=== PATIENT | female | born 2000 | race Caucasian/White ===

== ENCOUNTER 2023-04-13 13:22 | Outpatient (CLI) | payer OTHER, SELFPAY ==
--- NOTE | 2023-04-13 14:30 | NEURO_ITS ---
Impression: # Complains of pain in hands. # Evolving right Carpal Tunnel Syndrome. # No ulnar neuropathy. # Normal needle/EMG exam. Nerve Conduction Studies Anti Sensory Summary Table Stim Site NR Peak (ms) P-T Amp (?V) Site1 Site2 Delta-P (ms) Dist (cm) Mitch (m/s) Left Median Anti Sensory (2-3nd Digit) Wrist 2.8 65.4 Wrist 2-3nd Digit 2.8 14.0 50 Wrist 2.6 77.1 Wrist 2-3nd Digit 2.8 14.0 50 Right Median Anti Sensory (2-3nd Digit) Wrist 3.3 74.0 Wrist 2-3nd Digit 3.3 14.0 42 Wrist 3.7 48.0 Wrist 2-3nd Digit 3.3 14.0 42 Left Radial Anti Sensory (Base 1st Digit) Wrist 1.8 27.8 Wrist Base 1st Digit 1.8 0.0 Right Radial Anti Sensory (Base 1st Digit) Wrist 2.0 11.2 Wrist Base 1st Digit 2.0 0.0 Left Ulnar Anti Sensory (5th Digit) Wrist 2.3 38.1 Wrist 5th Digit 2.3 14.0 61 Right Ulnar Anti Sensory (5th Digit) Wrist 2.3 25.3 Wrist 5th Digit 2.3 14.0 61 Motor Summary Table Stim Site NR Onset (ms) O-P Amp (mV) Site1 Site2 Delta-0 (ms) Dist (cm) Mitch (m/s) Left Median Motor (Abd Poll Brev) Wrist 2.9 6.9 Elbow Wrist 4.5 29.0 64 Elbow 7.4 4.5 Right Median Motor (Abd Poll Brev) Wrist 3.3 7.0 Elbow Wrist 4.9 30.0 61 Elbow 8.2 5.1 Left Ulnar Motor (Abd Dig Minimi) Wrist 2.0 7.6 A Elbow Wrist 4.9 30.0 61 A Elbow 6.9 6.6 Right Ulnar Motor (Abd Dig Minimi) Wrist 2.0 7.6 A Elbow Wrist 5.2 32.0 62 A Elbow 7.2 5.6 F Wave Studies NR F-Lat (ms) L-R F-Lat (ms) Left Median (Mrkrs) (Abd Poll Brev) 25.62 2.18 Right Median (Mrkrs) (Abd Poll Brev) 27.80 2.18 Left Ulnar (Mrkrs) (Abd Dig Min) 25.26 0.56 Right Ulnar (Mrkrs) (Abd Dig Min) 25.81 0.56 EMG Side Muscle Nerve Root Ins Act Fibs Amp Dur Recrt Comment Right 1stDorInt Ulnar C8-T1 Nml Nml Nml Nml Nml Right Ext Indicis Radial (Post Int) C7-8 Nml Nml Nml Nml Nml Right Ext Digitorum Radial (Post Int) C7-8 Nml Nml Nml Nml Nml Right BrachioRad Radial C5-6 Nml Nml Nml Nml Nml Right PronatorTeres Median C6-7 Nml Nml Nml Nml Nml Right Abd Poll Brev Median C8-T1 Nml Nml Nml Nml Nml Right ABD Dig Min Ulnar C8-T1 Nml Nml Nml Nml Nml Left 1stDorInt Ulnar C8-T1 Nml Nml Nml Nml Nml Left Ext Indicis Radial (Post Int) C7-8 Nml Nml Nml Nml Nml Left Ext Digitorum Radial (Post Int) C7-8 Nml Nml Nml Nml Nml Left BrachioRad Radial C5-6 Nml Nml Nml Nml Nml Left PronatorTeres Median C6-7 Nml Nml Nml Nml Nml Left Abd Poll Brev Median C8-T1 Nml Nml Nml Nml Nml Left ABD Dig Min Ulnar C8-T1 Nml Nml Nml Nml Nml MTDD
== END 2023-04-13 13:23 | disposition home or self-care (01) ==
LOC: ANHNEURO 13:23
PROVIDERS: PCP Family Medicine; Visit Provider Plastic Surgery
DX: G56.03 Carpal tunnel syndrome, bilateral upper limbs (principal)
CPT/HCPCS: 95886; 95911

== ENCOUNTER 2023-06-03 00:45 | Day surgery (SDC) | payer OTHER, SELFPAY ==
[2023-05-25 12:18] VITALS: BMI 36.1
--- NOTE | 2023-05-25 12:22 | PC.NURSE ---
Report to the Outpatient Waiting Room, entrance under the green pavilion located off [facility], at time 0600 on date 06/03/23. Planned Procedure Time: 0730. Time changes happen often and if your time is changed the preop area will call you the afternoon before. - You and your visitor will be asked to self-screen and do not enter if you have any COVID symptoms. - A mask is optional within the hospital at this time. - No food OR DRINK from midnight until time of surgery Take the following medications with a SIP of water the morning of surgery: XANAX IF NEEDED, BUSPIRONE, CONTROL, SERTRALINE DO NOT STOP ANY OF YOUR OTHER PRESCRIPTION MEDICATIONS PRIOR TO SURGERY ?EXCEPT THE FOLLOWING Medications to discontinue per physician: N/A Date to take last dose: N/A Please no make-up, nail georgian, hairspray, perfume, deodorant, or body powder the day of surgery. No jewelry (including any body piercings) or valuables the day of surgery, leave them at home. Please take a shower or bath the night before, or the morning of, surgery with an antibacterial soap. Wear comfortable, loose fitting clothing. - Jewelry must be removed prior to entering the operating room. Rings and piercings that are not removed may be cut off. - The hospital will not accept responsibility for valuables. - Please leave all valuables, including medications, at home the day of surgery. If you are going home after surgery, a licensed vacuum truck driver must drive you home. - NO public transportation without another adult if you receive anesthesia. - We recommend that an adult stay with you for 24 hours following discharge. - We also recommend that you do not drive, make important decision, drink alcoholic beverages, or take any drugs that were not prescribed by your health care provider for at least 24 hours after your discharge time. Follow any additional instructions given to you from your surgeon. If you or anyone in your household have experienced Covid symptoms in the past week, please notify your surgeon or the nurse liaison at the phone number below for possible testing. Telephone instructions given to PT - RADHA and asked if any additional questions and then verbalized understanding. Patient advised to call surgeon office or pre surgery nurse liaison [phone] if any additional questions.
--- NOTE | 2023-06-03 06:53 | P.PNAN_ITS ---
Anes - Initial Pre Proc Eval Procedure: Operation Date: 06/03/23 07:30 Proposed Procedures p Right Endoscopic Carpal Tunnel Release, Possible Open - Graham Delacruz MD Date/Time: 06/03/23 06:53 Surgeon: Graham Delacruz MD Pre Op Diagnosis: Rt Carpal Tunnel Synd Patient Data Age: 23 Gender: F Height: 1.75 m Weight: 111.15 kg Allergies Allergy/AdvReac Type Severity Reaction Status Date / Time duloxetine AdvReac Mild emotional Verified 06/03/23 06:50 Home Medications Medication Instructions Recorded Confirmed Type alprazolam 0.25 mg tablet 0.25 mg PO QHS PRN anxiety #14 tabs 02/01/23 05/25/23 Rx clindamycin phosphate 1 % topical See Rx Instructions .Route 03/02/23 05/25/23 Rx gel .COMPLEX #30 grams buspirone 10 mg tablet 30 mg PO BID 1 month #180 tabs 05/17/23 05/25/23 Rx desogestrel 0.15 mg-ethinyl 1 tablet PO DAILY #84 tabs 05/17/23 05/25/23 Rx estradiol 0.03 mg tablet (Apri) sertraline 100 mg tablet 100 mg PO BID #180 tabs 05/17/23 05/25/23 Rx Patient hx anesthesia problems: none Family hx anesthesia problems: none Results Review: All pre-operative results and documents have been reviewed as part of the pre- operative evaluation. [facility] Past Medical History Medical History (Updated 01/13/23 @ 11:20 by Kristina Messer APRN) Anxiety Carpal tunnel syndrome, bilateral Encounter for general adult medical examination without abnormal findings Family History Family History (Updated 08/07/22 @ 15:18 by Frida Kearns MA) Father Heart disease Social History Social History (Updated 01/19/23 @ 10:42 by Humaira Rondon MA) Smoking status: Current every day smoker Tobacco type: e-cigarettes/vaping Second hand tobacco smoke exposure: Yes Alcohol intake: never Substance use: current Substance use type: marijuana Lack of Transportation: No Lack of Food: Sometimes True Current Housing: I Have Housing Concerned About Future Housing: No Difficulty Paying Gas/Electric Bills: YES Difficulty Paying for Meds: No Currently Unemployed: No Education: Associate Degree Living arrangements: with friend(s) Additional living arrangements comments: BOYFRIEND Occupation/Education: occupation Spiritual care concerns: No Anes - Eval Final PreProcedure Day of Procedure 06/03/23 06:53 Patient weight: obese Heart: regular rate and rhythm Lungs: clear to auscultation Airway: Mallampati scale class II Neurological: alert and oriented Last oral intake: >/= 8 hours ASA classification: II Emergent: no Anesthetic plan: proceed Anesthesia type and monitoring: general GIVS and standard monitoring Results Review: All pre-operative results and documents have been reviewed as part of the pre- operative evaluation. Informed Consent: The patient's anesthetic plan and its attendant risks and benefits were discussed with the patient/family/POA. Questions were solicited and answers provided to the satisfaction of the patient/family/POA.
[2023-06-03 06:58] VITALS: BP 123/75; PULSE 82; RESP 16; TEMP 36.3; O2SAT 98
--- NOTE | 2023-06-03 06:59 | P.OP_ITS ---
Procedure Note - Detailed Date of Procedure 06/03/23 Pre-op Diagnosis Rt Carpal Tunnel Synd Post-op Diagnosis Same Procedure Performed right ectr Surgeon Graham Delacruz MD Revenue Investigator Saundra Chairez PA-C Anesthesia MAC Description of Procedure INFORMED CONSENT: The patient was seen and examined and marked in the pre-op area.? The patient signed the consent form. PROCEDURE IN DETAIL:The patient taken back to OR on the stretcher in supine position. Time out performed with anesthesia, surgeon and staff agreeing on patient's name site and surgery to be performed SCDs were placed on the lower extremities and inflated. A tourniquet was placed on {right} upper extremity and antibiotics given IV After anesthesia administered sedation I injected {5}cc 1%lido with epi and 0.5% marcaine plain at the operative site The?{right upper extremity}?was prepped and draped in sterile fashion the??{right upper extremity} was? exsanguinated with Esmarch bandage and tourniquet inflated to 250mmHg I made a transverse incision in the {right} volar distal wrist crease through skin and dermis with 15 blade scalpel.? Littler scissors spread down to antebrachial fascia. A small incision was made in antebrachial fascia allowing access to Carpal tunnel. I proceeded with sequential dilation staying in line with the ring finger and hugging the hook of the hamate.? I then used the synovial elevator to free any adhesions from the underside of the transverse carpal ligament. Next I was able to insert the Microaire endoscopic carpal tunnel device with direct visualization of the transverse fibers on the monitor and proceeded with complete segmental retrograde release of the ligament in its entirety.? I irrigated with normal saline and closed with 4-0 monocryl for dermis and subcuticular closure. A dressing of Dermabond, 4x4, latanya, and a volar splint was applied for patient safety, security, and comfort and secured with an jesica bandage after the tourniquet was let down noting the hand was warm and well perfused. The patient was then awaken from anesthesia and transferred to the recovery room in stable condition.? Complications - none EBL- 0cc Disposition - home in stable conditions Saundra Chairez PA-C was essential for positioning, retraction, closure and dressing placement [facility] Billing Surgery - Charge Forward: Surgery Billing ([id number] for saundra)
--- NOTE | 2023-06-03 06:59 | PM.HPGS ---
History of Present Illness History of Present Illness Chief complaint: Rt Carpal Tunnel Synd Narrative: Patient seen and examined in pre-operative holding area. No interval change in medical history or symptoms. Patient recalls previous discussion of benefits and alternatives to procedure. Continues to desire to proceed with right endoscopic possible open carpal tunnel release. Reviewed procedure, post-op expectations and risks including but not limited to bleeding, infection, injury to tendon/nerve/vessel, decreased hand function, stiffness, RSD, no change or worsening of symptoms. I discussed the possible use of assistants and their participation in the case. Patient stated understanding and signed the consent form wishing to proceed. Review of Systems Review of Systems: All systems reviewed & are unremarkable except as noted in HPI and below PMFSH Past Medical History Medical History (Updated 01/13/23 @ 11:20 by Kristina Messer APRN) Anxiety Carpal tunnel syndrome, bilateral Encounter for general adult medical examination without abnormal findings Family History Family History (Updated 08/07/22 @ 15:18 by Frida Kearns MA) Father Heart disease Social History Social History (Updated 01/19/23 @ 10:42 by Humaira Rondon MA) Smoking status: Current every day smoker Tobacco type: e-cigarettes/vaping Second hand tobacco smoke exposure: Yes Alcohol intake: never Substance use: current Substance use type: marijuana Lack of Transportation: No Lack of Food: Sometimes True Current Housing: I Have Housing Concerned About Future Housing: No Difficulty Paying Gas/Electric Bills: YES Difficulty Paying for Meds: No Currently Unemployed: No Education: Associate Degree Living arrangements: with friend(s) Additional living arrangements comments: BOYFRIEND Occupation/Education: occupation Spiritual care concerns: No Meds Home Medications and Allergies Home Medications Medication Instructions Recorded Confirmed Type alprazolam 0.25 mg tablet 0.25 mg PO QHS PRN anxiety #14 tabs 02/01/23 05/25/23 Rx clindamycin phosphate 1 % topical See Rx Instructions .Route 03/02/23 05/25/23 Rx gel .COMPLEX #30 grams buspirone 10 mg tablet 30 mg PO BID 1 month #180 tabs 05/17/23 05/25/23 Rx desogestrel 0.15 mg-ethinyl 1 tablet PO DAILY #84 tabs 05/17/23 05/25/23 Rx estradiol 0.03 mg tablet (Apri) sertraline 100 mg tablet 100 mg PO BID #180 tabs 05/17/23 05/25/23 Rx Allergies Allergy/AdvReac Type Severity Reaction Status Date / Time duloxetine AdvReac Mild emotional Verified 06/03/23 06:50 Exam Narrative: unchanged Assessment and Plan Assessment and plan (1) Carpal tunnel syndrome, bilateral: Code(s): G56.03 - Carpal tunnel syndrome, bilateral upper limbs Status: Acute Assessment and Plan: as above
--- NOTE | 2023-06-03 07:14 | SUR.PREOP ---
Attempted IV start x2 with no success. Notified vascular access dept.
[2023-06-03] MEDS: LACTATED RINGERS 1,000 ML 30 ML IV CONT (07:23)
[2023-06-03] MEDS: ceFAZolin 2 GM/D5W 50 ML 2 GM/50 ML BAG IVPB (07:26)
[2023-06-03] MEDS: LIDO 1%/EPINEPHRINE 1:100,000 50 ML VIAL INFILTRATE (07:38)
[2023-06-03 07:46] VITALS: BP 114/68; PULSE 74; RESP 16; O2SAT 96
[2023-06-03 08:15] VITALS: BP 121/80; PULSE 63; RESP 16
== END 2023-06-03 08:34 | disposition home or self-care (01) ==
PROVIDERS: PCP Family Medicine; Visit Provider Plastic Surgery
PROC: 01N54ZZ Release Median Nerve, Percutaneous Endoscopic Approach (ICD-10-PCS; CPT 29848; principal; 2023-06-03 07:30)
DX: G56.01 Carpal tunnel syndrome, right upper limb (principal); F41.9 Anxiety disorder, unspecified; F17.290 Nicotine dependence, other tobacco product, uncomplicated; F12.90 Cannabis use, unspecified, uncomplicated; E66.9 Obesity, unspecified; Z68.38 Body mass index [BMI] 38.0-38.9, adult
CPT/HCPCS: 29848; J0690; J2250; J2704; J3010; J7120

== ENCOUNTER 2023-08-11 01:04 | Day surgery (SDC) | payer OTHER, SELFPAY ==
[2023-08-02 11:33] VITALS: BMI 39.0
--- NOTE | 2023-08-02 11:39 | PC.NURSE ---
Report to the Outpatient Waiting Room, entrance under the green pavilion located off [facility], at time _0630_ on date _[id number]_. Planned Procedure Time: _0830. Time changes happen often and if your time is changed the preop area will call you the afternoon before. - You and your visitor will be asked to self-screen and do not enter if you have any COVID symptoms. - A mask is optional within the hospital at this time. - No food or drink from midnight until time of surgery Take the following medications with a SIP of water the morning of surgery: __Buspirone and Sertraline. DO NOT STOP ANY OF YOUR OTHER PRESCRIPTION MEDICATIONS PRIOR TO SURGERY ?EXCEPT THE FOLLOWING Medications to discontinue per physician None Date to take last dose Please no make-up, nail icelandic, hairspray, perfume, deodorant, or body powder the day of surgery. No jewelry (including any body piercings) or valuables the day of surgery, leave them at home. Please take a shower or bath the night before, or the morning of, surgery with an antibacterial soap. Wear comfortable, loose fitting clothing. - Jewelry must be removed prior to entering the operating room. Rings and piercings that are not removed may be cut off. - The hospital will not accept responsibility for valuables. - Please leave all valuables, including medications, at home the day of surgery. If you are going home after surgery, a licensed six horse hitch driver must drive you home. - NO public transportation without another adult if you receive anesthesia. - We recommend that an adult stay with you for 24 hours following discharge. - We also recommend that you do not drive, make important decision, drink alcoholic beverages, or take any drugs that were not prescribed by your health care provider for at least 24 hours after your discharge time. Follow any additional instructions given to you from your surgeon. If you or anyone in your household have experienced Covid symptoms in the past week, please notify your surgeon or the nurse liaison at the phone number below for possible testing. Telephone instructions given to __Grace__and asked if any additional questions and then verbalized understanding. Patient advised to call surgeon office or pre surgery nurse liaison [phone] if any additional questions.
--- NOTE | 2023-08-10 15:59 | WPDANESEPPF ---
Anes - Initial Pre Proc Eval Procedure: Operation Date: 08/11/23 08:30 Proposed Procedures p Left Endoscopic Carpal Tunnel Release, Possible Open - Graham Delacruz MD Date/Time: 08/10/23 15:59 Surgeon: Graham Delacruz MD Pre Op Diagnosis: left carpal tunnel syndrome Patient Data Age: 23 Gender: F Height: 1.75 m Weight: 120 kg Allergies Allergy/AdvReac Type Severity Reaction Status Date / Time duloxetine AdvReac Mild emotional Verified 08/02/23 11:31 Home Medications Medication Instructions Recorded Confirmed Type alprazolam 0.25 mg tablet 0.25 mg PO QHS PRN anxiety #14 tabs 02/01/23 08/02/23 Rx clindamycin phosphate 1 % topical See Rx Instructions .Route 03/02/23 08/02/23 Rx gel .COMPLEX #30 grams desogestrel 0.15 mg-ethinyl 1 tablet PO DAILY #84 tabs 05/17/23 08/02/23 Rx estradiol 0.03 mg tablet (Apri) sertraline 100 mg tablet 100 mg PO BID #180 tabs 05/17/23 08/02/23 Rx buspirone 30 mg tablet 30 mg PO BID #180 tabs 07/13/23 08/02/23 Rx Patient hx anesthesia problems: none Family hx anesthesia problems: none Results Review: All pre-operative results and documents have been reviewed as part of the pre-operative evaluation. [facility] Past Medical History Medical History Anxiety Carpal tunnel syndrome, bilateral Encounter for general adult medical examination without abnormal findings Family History Family History Father Heart disease Social History Social History Years smoked: 4 Smoking status: Current every day smoker Tobacco type: e-cigarettes/vaping Second hand tobacco smoke exposure: Yes Alcohol intake: never Substance use: current Substance use type: marijuana Other substance usage details: 2 or 3 times a day. Lack of Transportation: No Lack of Food: Sometimes True Current Housing: I Have Housing Concerned About Future Housing: No Difficulty Paying Gas/Electric Bills: YES Difficulty Paying for Meds: No Currently Unemployed: No Education: Associate Degree Living arrangements: with family Additional living arrangements comments: BOYFRIEND Occupation/Education: occupation Spiritual care concerns: No Anes - Eval Final PreProcedure Day of Procedure 08/10/23 15:59 Patient weight: obese Heart: regular rate and rhythm Lungs: clear to auscultation Airway: Mallampati scale class III Neurological: alert and oriented Last oral intake: >/= 8 hours ASA classification: III Emergent: no Anesthetic plan: proceed Anesthesia type and monitoring: general GIVS and standard monitoring Results Review: All pre-operative results and documents have been reviewed as part of the pre-operative evaluation. Informed Consent: The patient's anesthetic plan and its attendant risks and benefits were discussed with the patient/family/POA. Questions were solicited and answers provided to the satisfaction of the patient/family/POA.
[2023-08-11 06:45] VITALS: BP 137/86; PULSE 74; RESP 18; TEMP 36.4; O2SAT 96
--- NOTE | 2023-08-11 06:49 | PM.HPGS ---
History of Present Illness History of Present Illness Chief complaint: left carpal tunnel syndrome Narrative: Patient seen and examined in pre-operative holding area. No interval change in medical history or symptoms. Patient recalls previous discussion of benefits and alternatives to procedure. Continues to desire to proceed with left endoscopic possible open carpal tunnel release. Reviewed procedure, post-op expectations and risks including but not limited to bleeding, infection, injury to tendon/nerve/vessel, decreased hand function, stiffness, RSD, no change or worsening of symptoms. I discussed the possible use of assistants and their participation in the case. Patient stated understanding and signed the consent form wishing to proceed. Review of Systems Review of Systems: All systems reviewed & are unremarkable except as noted in HPI and below PMFSH Past Medical History Medical History Anxiety Carpal tunnel syndrome, bilateral Encounter for general adult medical examination without abnormal findings Family History Family History Father Heart disease Social History Social History Years smoked: 4 Smoking status: Current every day smoker Tobacco type: e-cigarettes/vaping Second hand tobacco smoke exposure: Yes Alcohol intake: never Substance use: current Substance use type: marijuana Other substance usage details: 2 or 3 times a day. Lack of Transportation: No Lack of Food: Sometimes True Current Housing: I Have Housing Concerned About Future Housing: No Difficulty Paying Gas/Electric Bills: YES Difficulty Paying for Meds: No Currently Unemployed: No Education: Associate Degree Living arrangements: with family Additional living arrangements comments: BOYFRIEND Occupation/Education: occupation Spiritual care concerns: No Meds Home Medications and Allergies Home Medications Medication Instructions Recorded Confirmed Type alprazolam 0.25 mg tablet 0.25 mg PO QHS PRN anxiety #14 tabs 02/01/23 08/02/23 Rx clindamycin phosphate 1 % topical See Rx Instructions .Route 03/02/23 08/02/23 Rx gel .COMPLEX #30 grams desogestrel 0.15 mg-ethinyl 1 tablet PO DAILY #84 tabs 05/17/23 08/02/23 Rx estradiol 0.03 mg tablet (Apri) sertraline 100 mg tablet 100 mg PO BID #180 tabs 05/17/23 08/02/23 Rx buspirone 30 mg tablet 30 mg PO BID #180 tabs 07/13/23 08/02/23 Rx Allergies Allergy/AdvReac Type Severity Reaction Status Date / Time duloxetine AdvReac Mild emotional Verified 08/02/23 11:31 Exam Narrative: unchanged Assessment and Plan Assessment and plan (1) Carpal tunnel syndrome, bilateral: Code(s): G56.03 - Carpal tunnel syndrome, bilateral upper limbs Status: Acute Assessment and Plan: cont as above
--- NOTE | 2023-08-11 06:50 | W.PM.PROC2 ---
Procedure Note - Detailed Date of Procedure 08/11/23 Pre-op Diagnosis left carpal tunnel syndrome Post-op Diagnosis Same Procedure Performed left ectr Surgeon Graham Delacruz MD Rn Medicare saundra garcia pa-c Anesthesia MAC Description of Procedure INFORMED CONSENT: The patient was seen and examined and marked in the pre-op area.? The patient signed the consent form. PROCEDURE IN DETAIL:The patient taken back to OR on the stretcher in supine position. Time out performed with anesthesia, surgeon and staff agreeing on patient's name site and surgery to be performed SCDs were placed on the lower extremities and inflated. A tourniquet was placed on {left} upper extremity and antibiotics given IV After anesthesia administered sedation I injected {4}cc 1%lido with epi and 0.5% marcaine plain at the operative site The?{left upper extremity}?was prepped and draped in sterile fashion the??{left upper extremity} was? exsanguinated with Esmarch bandage and tourniquet inflated to 250mmHg I made a transverse incision in the {left} volar distal wrist crease through skin and dermis with 15 blade scalpel.? Littler scissors spread down to antebrachial fascia. A small incision was made in antebrachial fascia allowing access to Carpal tunnel. I proceeded with sequential dilation staying in line with the ring finger and hugging the hook of the hamate.? I then used the synovial elevator to free any adhesions from the underside of the transverse carpal ligament. Next I was able to insert the Microaire endoscopic carpal tunnel device with direct visualization of the transverse fibers on the monitor and proceeded with complete segmental retrograde release of the ligament in its entirety.? I irrigated with normal saline and closed with 4-0 monocryl for dermis and subcuticular closure. A dressing of Dermabond, 4x4, latanya, and a volar splint was applied for patient safety, security, and comfort and secured with an jesica bandage after the tourniquet was let down noting the hand was warm and well perfused. The patient was then awaken from anesthesia and transferred to the recovery room in stable condition.? Complications - none EBL- 0cc Disposition - home in stable conditions saundra garcia pa-c was essential for positioning, retraction, closure and dressing placement [facility] Billing Surgery - Charge Forward: Surgery Billing ([id number] for saundra)
[2023-08-11] MEDS: LACTATED RINGERS 1,000 ML 30 ML IV CONT (07:00)
[2023-08-11] MEDS: LIDO 1%/EPINEPHRINE 1:100,000 50 ML VIAL 10 ML INFILTRATE (08:05)
[2023-08-11] MEDS: ceFAZolin 3 GM/D5W 100 ML 100 ML IVPB (08:11)
[2023-08-11] MEDS: BUPivacaine HCL 0.5% 10 ML AMP INFILTRATE (08:22)
[2023-08-11 08:30] VITALS: BP 97/56; PULSE 71; RESP 14
[2023-08-11 09:00] VITALS: BP 108/59; PULSE 70; RESP 20
[2023-08-11 09:25] VITALS: BP 110/60; PULSE 72; RESP 20
== END 2023-08-11 09:28 | disposition home or self-care (01) ==
PROVIDERS: PCP Family Medicine; Visit Provider Plastic Surgery
PROC: 01N54ZZ Release Median Nerve, Percutaneous Endoscopic Approach (ICD-10-PCS; CPT 29848; principal; 2023-08-11 08:30)
DX: G56.02 Carpal tunnel syndrome, left upper limb (principal); F41.9 Anxiety disorder, unspecified; F17.210 Nicotine dependence, cigarettes, uncomplicated; F12.90 Cannabis use, unspecified, uncomplicated; E66.9 Obesity, unspecified; Z68.38 Body mass index [BMI] 38.0-38.9, adult
CPT/HCPCS: 29848; J0690; J2250; J2405; J2704; J3010; J7120

== ENCOUNTER 2023-09-23 10:14 | Outpatient (CLI) | payer OTHER, SELFPAY ==
[2023-09-23 19:35] LABS: Alanine Aminotransferase 15 U/L (6-35); Albumin Level 4.3 g/dL (3.5-5.1); Alkaline Phosphatase 141 U/L (38-126); Anion Gap 10 mmol/L (4-12); Aspartate Amino Transferase 32 U/L (14-36); Bilirubin,Total 0.3 mg/dL (0.2-1.3); Blood Urea Nitrogen 13 mg/dL (7-17); Calcium 9.1 mg/dL (8.4-10.2); Carbon Dioxide 28 mmol/L (22-30); Chloride 99 mmol/L (98-107); Cholesterol 196 mg/dL (0-200); Estimated Glomerular Filt Rate > 60; Glucose 77 mg/dL (65-110); HDL Direct 49 mg/dL; Potassium 4.4 mmol/L (3.4-5.0); Sodium 137 mmol/L (137-145); Triglycerides 182 mg/dL (<150)
[2023-09-23 19:45] LABS: LDL Cholesterol Direct 117 mg/dL
[2023-09-23 20:08] LABS: Hemoglobin A1C 5.4 % (<5.7)
[2023-09-23 20:22] LABS: Hemoglobin 13.8 g/dL (12.0-15.0); Mean Corpuscular HGB Conc 32.1 g/dl (32-36); Mean Corpuscular Hemoglobin 29.9 pg (26-34); Mean Corpuscular Volume 93.3 fl (80-100); Mean Platelet Volume 9.1 fl (7.4-10.4); Platelet Count Result 424 k/mm3 (150-375); Red Blood Count 4.61 M/mm3 (4.2-5.4); Red Cell Distribution Width 13.2 % (11.5-14.5); White Blood Count 10.7 K/mm3 (4.5-10.0)
[2023-09-23 20:23] LABS: Trichomonas Vag PCR NOT DETECTED (NOT DETECTE)
[2023-09-23 20:46] LABS: Chlamydia trachomatis NOT DETECTED (NOT DETECTE); Neisseria gonorrhoeae PCR NOT DETECTED (NOT DETECTE)
[2023-09-29 13:49] LABS: Vitamin D 1,25 (OH)2 Total 45 pg/mL (18-72); Vitamin D2 1,25 (OH)2 <8 pg/mL; Vitamin D3 1,25 (OH)2 45 pg/mL
== END 2023-09-23 10:15 | disposition home or self-care (01) ==
LOC: ANHGOSHLAB 10:15
PROVIDERS: PCP Family Medicine; Visit Provider Nurse Practitioner Family
DX: E66.9 Obesity, unspecified (principal); F41.9 Anxiety disorder, unspecified; Z00.00 Encounter for general adult medical examination without abnormal findings; Z79.899 Other long term (current) drug therapy; R73.03 Prediabetes; E55.9 Vitamin D deficiency, unspecified
CPT/HCPCS: 36415; 80053; 80061; 82652; 83036; 84443; 85027; 87491; 87591; 87661